=== PATIENT | female | born 1980 | race Caucasian/White ===

== ENCOUNTER 2017-06-28 06:25 | Inpatient (IN) ==
[2017-06-28] MEDS ORDERED: CeFAZolin Syr 2,000MG/20 ML 2,000 MG/20 ML SYRINGE IVPB ONE (06:46)
[2017-06-28] MEDS ORDERED: Lidocaine -MPF 1% 2 ML VIAL ID ONE (06:46)
[2017-06-28] MEDS ORDERED: Albuterol 2.5 MG/3 ML NEBULIZER IH ONE (06:46)
--- NOTE | 2017-06-28 06:49 | History & Physical Report ---
Date of Encounter: 06/28/17 Time of Encounter: 06:48 24 Hour HP Update - Instructions Instructions: If the History and Physical is less than 30 days old and was completed prior to A.M. admission and or procedure and has NOT been updated on calendar day of procedure please complete this update prior to performing procedure. - Update Patient reports changes in Medical Condition: No Changes in examination, assessment, or condition: No Changes in Medication: No Preop tests/diagnostics Reviewed: Yes Surgery Remains Indicated: Yes Consent for Planned Operative Procedure(s) Verified: Yes - Pre-Operative Checklist Preoperative Checklist Indicated: Yes Prophylactic Antibiotic Ordered: Yes Home Medications Include Beta Lina: No Beta Lina Taken Today (Day of Surgery): No Beta Lina Taken Yesterday (Day Prior to Surgery): No Is VTE Prophylaxis Indicated?: Yes - Attending Attestation helene roca md facog
[2017-06-28] MEDS ORDERED: Plasma-Lyte A (PH 7.4) 1,000 ML IVC SCH (07:00)
--- NOTE | 2017-06-28 07:02 | Anesthesia Evaluation PreOp ---
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: Denies Any Significant HX Other Medical History: GERD, Other (hx thrombocytopenia, endometriosis) Anesthesia History: No Prior Anesthetic Complications, Past Anesthesia (C/S x3, laparoscopy, D&C,) Alcohol Use: none Drug use: none Medications and Allergies Paroxetine [Paxil] 30 mg PO DAILY 11/05/16 [History] Fluticasone Propionate Nasal [Flonase] 1 spr NS BID PRN 06/28/17 [History] Omeprazole [PriLOSEC] 20 mg PO DAILY 06/28/17 [History] 3 Allergy/AdvReac Type Severity Reaction Status Date / Time No Known Allergies Allergy Verified 06/28/17 06:52 - Meds/Allergy Pre-op Review Medications Reviewed: Yes Allergies Reviewed: Yes Beta Blockers on Current Med List: No Anesthesia Results - Labs Laboratory Tests 06/21/17 11:34 Hgb 14.2 Hct 41.4 Plt Count 203 Anesthesia Exam Selected Entries 06/28/17 06:51 Temperature 98.1 F Pulse Rate 73 Respiratory Rate 18 Blood Pressure 111/71 O2 Sat by Pulse Oximetry 99 Oxygen Delivery Method Room Air Weight: 73kg NPO (# of Hours): 8 - HEENT Pupil (Motor): EOMI Mallampati: II Teeth: Normal Oral Opening: Greater than 3 - ASSEMBLER CRIMPER LOC: Oriented ASSEMBLER CRIMPER Motor: Normal RUE, Normal LUE, Normal RLE, Normal LLE, Normal Face [employer]SEMBLER CRIMPER Sensory: Normal: RUE, LUE, RLE, LLE, Face - Cardiac Rhythm: Regular Murmur: None - Pulmonary Breath Sounds: bilateral Clear Respiratory Effort: Symmetrical Anesthesia Assess/Plan ASA Score: 2 Modified Steven Scale for Level of Consciousness: Cooperative, oriented, and tranquil Anesthetic Plan: General (with duramorph intrathecal) Monitoring Plan: Standard Monitors Recovery Plan: PACU (agrees to GA and Duramorph)
[2017-06-28] MEDS ORDERED: Lidocaine/EPI 1:100k 1% 20 ML VIAL ONE (07:15)
[2017-06-28] MEDS ORDERED: *HR* Belladonna Alkaloids/Opium 30 MG RECTAL SUPPOSITORY RC ONE (07:15)
[2017-06-28] MEDS ORDERED: Propofol 500 MG/50 ML INFUS..BTL ONE ×2 (07:17→09:47)
[2017-06-28] MEDS ORDERED: Ondansetron 4 MG/2 ML VIAL ONE (07:17)
[2017-06-28] MEDS ORDERED: Lidocaine -MPF 2% 2 ML VIAL ONE (07:17)
[2017-06-28] MEDS ORDERED: *HR* FentaNYL (PF) 100 MCG/2 ML VIAL ONE (07:17)
[2017-06-28] MEDS ORDERED: *HR* Midazolam HCl 2 MG/2 ML VIAL ONE (07:18)
[2017-06-28] MEDS ORDERED: *HR* Morphine Sulfate/PF 10 MG/10 ML AMPUL ONE (07:24)
[2017-06-28] MEDS ORDERED: MORPHINE SUL Oral CONC 10 MG/0.5 ML ORAL.SYG SL PRN (08:55)
[2017-06-28] MEDS ORDERED: Albuterol 2.5 MG/3 ML NEBULIZER IH PRN (08:55)
[2017-06-28] MEDS ORDERED: *HR* Promethazine 25 MG/ML VIAL IVP PRN (08:55)
--- NOTE | 2017-06-28 08:55 | Anesthesia Procedures ---
Date of Encounter: 06/28/17 Time of Encounter: 07:45 Procedures: Anesthesia - Epidural/Spinal Patient ID/Chart reviewed: Yes Patient examined: Yes Sedation: Versed (mg): 2 Site Prep: Sterile prep and drape Patient position: upright Local Anesthetic: Lidocaine 1% Amount of Local Anesthetic used: 3 Interspace Used: L3-L4 Blood: No CSF: Yes Paresthesia: No Spinal Needle Gauge: 25 Spinal Dose: bupivicaine 1.2 mg with duramorph 300mics
[2017-06-28] MEDS ORDERED: *HR* Propofol 200 MG/20 ML VIAL IVP ONE (09:29)
[2017-06-28] MEDS ORDERED: Dexamethasone 4 MG/ML VIAL ONE (09:39)
[2017-06-28] MEDS ORDERED: Ketorolac 30 MG/ML VIAL ONE (09:39)
[2017-06-28] MEDS ORDERED: Acetaminophen IV 1,000 MG/100 ML INFUS..BTL ONE (09:40)
[2017-06-28] MEDS ORDERED: Sennosides 8.6 MG TABLET PO PRN ×2 (09:42→11:25)
[2017-06-28] MEDS ORDERED: Ondansetron 4 MG/2 ML VIAL IVP PRN ×2 (09:42→11:25)
[2017-06-28] MEDS ORDERED: *HR* OxyCODONE/APAP 5/325 TABLET PO PRN (09:42)
[2017-06-28] MEDS ORDERED: Naloxone 0.4 MG/ML INJ IVP PRN ×2 (09:42→11:25)
--- NOTE | 2017-06-28 09:42 | OB/GYN Procedure Note ---
Hysterectomy - Diagnosis Date of procedure: 06/28/17 Hysterectomy pre-op: abnormal uterine bleeding, chronic pelvic pain, other ( Endometriosis and adenomyosis) Post-op diagnosis: same - Procedure Hysterectomy procedure: total abdominal hysterectomy, bilateral salpingectomy Surgeon: John Carmona Was there an drilling assistant present: Yes Service Person: Carol Lozoya Anesthesia provider: Antoni Simpson Anesthesia Type: Spinal (GETA) Estimated blood loss (cc): 250 Complications: none Fluids: crystalloid Urine output (cc): 200 Specimens: uterus, cervix, right fallopian tube, left fallopian tube Findings: Upon entering the abdominal pelvic cavity, uterus was enlarged and boggy consistent with adenomyosis. The ovaries appeared to be normal. The bladder was stuck to the anterior surface of the uterus Disposition: PACU Narrative: Patient was taken to the operating room. After satisfactory anesthesia was achieved, patient was placed in supine position and Olivera catheter inserted and prepped and draped in usual manner. After appropriate timeout, the abdomen was entered through standard Maylard incision. The Riana retractor was placed. The bowels packed superiorly with operative field. Uterus was grasped with Fernando clamps. Fallopian tubes were coagulated cut and resected and sent to pathology for analysis. Round ligaments were coagulated with signs and cut. Bladder flap created anteriorly. Uterine vessels were coagulated on both sides and cut. With sharp and blunt dissection the bladder was dissected away from the lower uterine segment. Uterosacral ligaments were clamped cut and suture ligated with 0 Monocryl. The vagina was entered laterally. Cervix and uterus were circumcised and sent to pathology for analysis. Cuff was closed with 0 Monocryl after assurance hemostasis, the peritoneum was reapproximated with her the vagina with a 2-0 Vicryl. The retractor and packs were removed. The abdomen was closed standard fashion using 0 Vicryl in the fascia and 3-0 Monocryl in the skin. Patient did well was taken to recovery in satisfactory condition. Counts were correct.
[2017-06-28] MEDS ORDERED: Neostigmine Methylsulfate 3 MG/3 ML SYRINGE ONE (09:43)
--- NOTE | 2017-06-28 10:29 | Anesthesia Evaluation Post Op ---
Date of Encounter: 06/28/17 Time of Encounter: 10:27 - Vital Signs Vital Signs: Vital Signs/O2 Sat, Most Current Temp Pulse Resp BP Pulse Ox 96.3 F L 70 16 100/66 100 06/28/17 10:01 06/28/17 10:11 06/28/17 10:11 06/28/17 10:11 06/28/17 10:11 - Lungs Lungs: Clear Ascult./Percussion - Airway Airway: Non-obstructed - Cardiovascular Regular Rate - Mental Status Mental Status: Alert & Oriented, Answers Appropriately - Pain Pain Scale: 5 (pt resting comfortably, VSS) Pain Scale used: Numeric (1 - 10) - Nausea Vomiting Nausea Vomiting: Not Present - Hydration Hydration: Ice chips, Olivera catheter - Discharge PostOp Status: Transfer Patient to floor
[2017-06-28] MEDS ORDERED: Fluticasone Propionate Nasal 50 MCG/SPRAY BOTTLE NS PRN (10:40)
[2017-06-28] MEDS ORDERED: *HR* HYDROcodone/Acet 5/325 mg TABLET PO PRN (11:25)
[2017-06-28] MEDS ORDERED: Ringers Solution, Lactated 1,000 ML ONE (14:08)
[2017-06-28] MEDS: *HR* OxyCODONE/APAP 5/325 TABLET PO PRN (23:00)
[2017-06-29 03:32] VITALS: BP 101/59
[2017-06-29 05:01] LABS: Basophils % 0.2 %; Eosinophils % 0.2 %; Hematocrit 33.9 % (35.3-44.9); Hemoglobin 11.5 g/dL (11.5-15.4); Immature Granulocytes % 0.3 % (0-4); Lymphocytes # 1.4 K/mcL (0.6-4.6); Mean Corpuscular HGB Conc 33.9 g/dL (31.6-35.5); Mean Corpuscular Hemoglobin 29.6 pg (28.0-33.3); Mean Corpuscular Volume 87.1 fL (83.0-100.0); Mean Platelet Volume 10.5 fL (9.4-12.4); Monocytes # 0.9 K/mcL (0.0-1.3); Monocytes % 7.8 %; Neutrophils # 9.1 K/mcL (1.6-8.9); Nucleated Red Blood Cells 0.3 /100 WBC (0); Platelet Count 181 K/mcL (140-400); Red Blood Count 3.89 M/mcL (3.82-4.97); Red Cell Distribution Width 13.2 % (11.5-14.5); Segmented Neutrophils % 79.5 %
[2017-06-29 05:06] LABS: eGFR For African Americans > 60 (> 60); eGFR For Non-African Americans > 60 (> 60)
[2017-06-29] MEDS: *HR* OxyCODONE/APAP 5/325 TABLET PO PRN (05:27)
--- NOTE | 2017-06-29 08:06 | Discharge Summary ---
Date of Encounter: 06/29/17 Time of Encounter: 08:04 - Discharge Diagnosis (1) Adenomyosis Priority: Primary Status: Resolved (2) Abdominal adhesions Priority: Secondary Status: Resolved (3) Post-op pain Priority: Secondary Status: Acute - Discharge Medications Prescriptions: OxyCODONE/APAP 5/325 [Percocet 5/325 MG] 1 each PO Q4HR PRN 14 Days #56 tablet PRN Reason: Severe Pain (7-10) Home Medications: Paroxetine [Paxil] 30 mg PO DAILY 11/05/16 [History] Fluticasone Propionate Nasal [Flonase] 1 spr NS BID PRN 06/28/17 [History] Omeprazole [PriLOSEC] 20 mg PO DAILY 06/28/17 [History] OxyCODONE/APAP 5/325 [Percocet 5/325 MG] 1 each PO Q4HR PRN 14 Days #56 tablet 06/29/17 [Rx] Allergies/Adverse Reactions: 3 Allergy/AdvReac Type Severity Reaction Status Date / Time No Known Allergies Allergy Verified 06/28/17 06:52 Data Procedures and tests throughout hospitalization: Laboratory Tests 06/29/17 06/29/17 04:09 04:09 WBC 11.5 H RBC 3.89 Hgb 11.5 Hct 33.9 L MCV 87.1 MCH 29.6 MCHC 33.9 RDW 13.2 Plt Count 181 MPV 10.5 Immature Gran % 0.3 Seg Neutrophils % 79.5 Lymphocytes % 12.0 Monocytes % 7.8 Eosinophils % 0.2 Basophils % 0.2 Neutrophils # 9.1 H Lymphocytes # 1.4 Monocytes # 0.9 Eosinophils # 0.0 Basophils # 0.0 Nucleated RBCs/100 WBC 0.3 H Creatinine 0.74 Est GFR ( Amer) > 60 Est GFR (Non-Af Amer) > 60 Labs on day of discharge: Labs from last 24 hours 06/29/17 06/29/17 04:09 04:09 WBC 11.5 H RBC 3.89 Hgb 11.5 Hct 33.9 L MCV 87.1 MCH 29.6 MCHC 33.9 RDW 13.2 Plt Count 181 MPV 10.5 Immature Gran % 0.3 Seg Neutrophils % 79.5 Lymphocytes % 12.0 Monocytes % 7.8 Eosinophils % 0.2 Basophils % 0.2 Neutrophils # 9.1 H Lymphocytes # 1.4 Monocytes # 0.9 Eosinophils # 0.0 Basophils # 0.0 Nucleated RBCs/100 WBC 0.3 H Creatinine 0.74 Est GFR ( Amer) > 60 Est GFR (Non-Af Amer) > 60 Date of admission: 06/28/17 10:35 Primary care physician: Megan Randhawa - Patient Status Disposition: Home, Self-Care Condition: Good Functional capacity at discharge: independent ambulation Overall status at discharge: patient is progressing back to baseline - Discharge Instructions Follow Up With: Megan Randhawa, [employer] F[employer]NACE OPERATOR [Primary Care Provider] - - Diet and Activity Activity: increase activity as tolerated Diet: advance to your usual diet Hospital Course JEWEL [employer]LE GAUGER Time Attestation: Total time spent providing and/or coordinating discharge services: Exam - Constitutional Vitals: Temp Pulse Resp BP Pulse Ox 98.2 F 73 16 101/59 99 06/29/17 03:31 06/29/17 03:31 06/29/17 03:31 06/29/17 03:31 06/29/17 03:31 General appearance IM: A&O X 3, answers questions appropriately - Respiratory Respiratory exam: Present: CTAB - Cardiovascular Cardiovascular exam IM: Present: JVD - GI/Abdominal GI/Abdominal exam IM: normal bowel sounds, soft Incision: normal, intact - Rectal Rectal exam: deferred - Extremities Exam Extremities exam IM: Present: full ROM - Neurological Exam Neurological exam: CN II-XII intact - VTE Documentation of Mechanical Device: Intermittent pneumatic compression device - Attending Attestation helene roca md facog
== END 2017-06-29 09:37 | disposition home or self-care (01) | DRG 742 ==
LOC: SAMDAY 06:25 → 1NENUOBS 10:35
PROVIDERS: ADMIT Obstetrics & Gynecology; ATTEND Obstetrics & Gynecology